=== PATIENT | female | born 1970 | race Caucasian/White ===

== ENCOUNTER 2016-11-18 10:12 | Inpatient (IN) | payer MEDICARE, MEDICAID ==
[~2016-11-18] VITALS: Ht 167.6 cm; Wt 62.5 kg
[2016-11-18] MEDS: TAMOXIFEN 10 MG TABLET PO SCH (09:00)
[2016-11-18] MEDS ORDERED: TAMO10TA PO (10:26)
[2016-11-18] MEDS ORDERED: PROP10TA PO (10:26)
[2016-11-18] MEDS ORDERED: GABA-827 PO (10:26)
[2016-11-18] MEDS ORDERED: OXYC20TA2 PO (10:26)
[2016-11-18] MEDS ORDERED: ONDANSETRON 2MG/ML, 2ML ONE (10:40)
[2016-11-18] MEDS ORDERED: HYDROmorphone 1 MG/ML, 1ML ONE ×2 (10:40→12:04)
[2016-11-18] MEDS: HYDROmorphone 1 MG/ML, 1ML IVPush PRN ×2 (10:43→12:06)
[2016-11-18 10:59] LABS: HEMATOCRIT 44.6 % (34.6-47.8); HEMOGLOBIN 15.1 g/dL (11.7-16.4); WHITE BLOOD COUNT 8.8 x10^3/uL (3.4-10)
[2016-11-18] MEDS ORDERED: SODIUM CHLORIDE 0.9% 1,000ML IVBOLUS ONE ×2 (11:00→14:00)
[2016-11-18] MEDS ORDERED: SODIUM CHLORIDE FLUSH 10ML SYR IVF ONE (11:00)
[2016-11-18] MEDS ORDERED: ONDANSETRON 2MG/ML, 2ML IVPush ONE (11:00)
[2016-11-18 11:10] LABS: ASPARTATE AMINO TRANSFERASE 73 U/L (15-37); BLOOD UREA NITROGEN 12 mg/dL (7-18)
[2016-11-18 11:56] LABS: PATH.CAST-FLAG NOT PRESENT; SPERM-FLAG NOT PRESENT; SRC-FLAG NOT PRESENT; XTAL-FLAG NOT PRESENT; YLC-FLAG NOT PRESENT
[2016-11-18] MEDS ORDERED: OMNIPAQUE 350 MG/ML, 100ML BOTTLE ONE (12:21)
[2016-11-18] MEDS ORDERED: PROMETHAZINE 25 MG/ML, 1ML IM ONE (13:30)
[2016-11-18] MEDS ORDERED: PROMETHAZINE 25 MG/ML, 1ML ONE (13:46)
[2016-11-18] MEDS ORDERED: CEFTRIAXONE PMX 1GM/50ML 50 ML IVPB ONE (14:00)
[2016-11-18] MEDS ORDERED: CEFTRIAXONE PMX 1GM/50ML 50 ML ONE (14:39)
[2016-11-18] MEDS ORDERED: BISACODYL 10 MG SUPP PR PRN (15:00)
[2016-11-18] MEDS ORDERED: ENALAPRILAT 1.25 MG/ML, 2ML IVPush PRN (15:00)
[2016-11-18] MEDS ORDERED: DOCUSATE 100 MG CAPSULE PO PRN (15:00)
[2016-11-18] MEDS ORDERED: POTASSIUM CHLORIDE 40 MEQ in SODIUM CHLORIDE 0.9% 500 ML IV ONE (15:30)
[2016-11-18] MEDS: GABAPENTIN 400 MG CAPSULE PO SCH ×2 (16:00→22:28)
[2016-11-18 16:05] VITALS: BP 121/83
[2016-11-18] MEDS: OXYcodone IR 30 MG TABLET PO PRN ×2 (16:12→21:58)
[2016-11-18] MEDS ORDERED: OXYcodone IR 5MG TABLET ONE ×2 (16:12→21:51)
[2016-11-18] MEDS: ONDANSETRON 2MG/ML, 2ML IVPush PRN ×2 (16:17→23:36)
[2016-11-18] MEDS: ACETAMINOPHEN 325 MG TABLET PO PRN (16:17)
[2016-11-18 19:20] VITALS: BP 131/88
[2016-11-18] MEDS: ENOXAPARIN 40 MG/0.4 ML SQ SCH (19:59)
[2016-11-18] MEDS: PROMETHAZINE 25 MG/ML, 1ML IM PRN (19:59)
[2016-11-18] MEDS: POTASSIUM CHLORIDE 10 MEQ in SODIUM CHLORIDE 0.9% 1,000 ML IV SCH (22:29)
[2016-11-19] MEDS: ACETAMINOPHEN 325 MG TABLET PO PRN ×3 (00:44→18:16)
[2016-11-19 00:51] VITALS: BP 139/90
[2016-11-19] MEDS: OXYcodone IR 30 MG TABLET PO PRN ×4 (03:52→21:56)
[2016-11-19 04:58] LABS: HEMOGLOBIN 11.8 g/dL (11.7-16.4); WHITE BLOOD COUNT 4.9 x10^3/uL (3.4-10)
[2016-11-19 05:13] LABS: BLOOD UREA NITROGEN 8 mg/dL (7-18)
[2016-11-19] MEDS: GABAPENTIN 400 MG CAPSULE PO SCH ×4 (05:54→19:42)
[2016-11-19 07:38] VITALS: BP 133/86
[2016-11-19] MEDS: PANTOPROZOLE 40MG TABLET PO SCH (07:50)
[2016-11-19] MEDS: PROPRANOLOL 10 MG TABLET PO SCH (07:50)
[2016-11-19] MEDS ORDERED: POTASSIUM CHLORIDE 20 MEQ TAB.ER.PRT PO ONE (08:00)
[2016-11-19] MEDS: ONDANSETRON 2MG/ML, 2ML IVPush PRN ×2 (08:04→18:16)
[2016-11-19] MEDS: TAMOXIFEN 10 MG TABLET PO SCH (09:00)
[2016-11-19] MEDS ORDERED: TAMOXIFEN 10 MG TABLET PO SCH (09:00)
[2016-11-19] MEDS: POTASSIUM CHLORIDE 20 MEQ TAB.ER.PRT PO SCH (11:22)
[2016-11-19] MEDS: POTASSIUM CHLORIDE 10 MEQ in SODIUM CHLORIDE 0.9% 1,000 ML IV SCH ×2 (11:28→20:45)
[2016-11-19] MEDS: PROMETHAZINE 25 MG/ML, 1ML IM PRN (11:45)
[2016-11-19 16:00] VITALS: BP 151/97
[2016-11-19 19:32] VITALS: BP 164/105
[2016-11-19 19:37] VITALS: BP 156/96
[2016-11-19] MEDS: ENOXAPARIN 40 MG/0.4 ML SQ SCH (19:42)
[2016-11-19] MEDS: ZOLPIDEM 5MG TABLET PO PRN (20:46)
[2016-11-20 00:45] VITALS: BP 170/102
[2016-11-20] MEDS: ONDANSETRON 2MG/ML, 2ML IVPush PRN ×3 (00:57→22:43)
[2016-11-20 01:37] VITALS: BP 143/82
[2016-11-20] MEDS: PROMETHAZINE 25 MG/ML, 1ML IM PRN (03:33)
[2016-11-20] MEDS: OXYcodone IR 30 MG TABLET PO PRN ×4 (03:58→22:43)
[2016-11-20] MEDS: GABAPENTIN 400 MG CAPSULE PO SCH ×4 (05:49→19:55)
[2016-11-20] MEDS: POTASSIUM CHLORIDE 10 MEQ in SODIUM CHLORIDE 0.9% 1,000 ML IV SCH (05:50)
[2016-11-20 07:23] VITALS: BP 151/96
[2016-11-20] MEDS: TAMOXIFEN 10 MG TABLET PO SCH (08:26)
[2016-11-20] MEDS: ACETAMINOPHEN 325 MG TABLET PO PRN ×3 (08:26→19:55)
[2016-11-20] MEDS: PROPRANOLOL 10 MG TABLET PO SCH (08:27)
[2016-11-20] MEDS: PANTOPROZOLE 40MG TABLET PO SCH (08:27)
[2016-11-20] MEDS: POTASSIUM CHLORIDE 20 MEQ TAB.ER.PRT PO SCH (08:27)
[2016-11-20 11:50] LABS: BLOOD UREA NITROGEN 5 mg/dL (7-18)
[2016-11-20 14:23] VITALS: BP 116/78
[2016-11-20] MEDS: ATENOLOL 50 MG TABLET PO SCH (16:14)
[2016-11-20 18:29] VITALS: BP 140/92
[2016-11-20] MEDS: ENOXAPARIN 40 MG/0.4 ML SQ SCH (19:56)
[2016-11-21] MEDS: ZOLPIDEM 5MG TABLET PO PRN (00:24)
[2016-11-21 02:49] VITALS: BP 110/71
[2016-11-21] MEDS: OXYcodone IR 30 MG TABLET PO PRN ×2 (04:50→10:59)
[2016-11-21] MEDS: GABAPENTIN 400 MG CAPSULE PO SCH ×2 (04:50→10:58)
[2016-11-21] MEDS: ATENOLOL 50 MG TABLET PO SCH (04:51)
[2016-11-21] MEDS: ACETAMINOPHEN 325 MG TABLET PO PRN (06:34)
[2016-11-21] MEDS: ONDANSETRON 2MG/ML, 2ML IVPush PRN ×2 (06:34→13:04)
[2016-11-21 07:00] VITALS: BP 130/75
[2016-11-21] MEDS: POTASSIUM CHLORIDE 20 MEQ TAB.ER.PRT PO SCH (08:31)
[2016-11-21] MEDS: TAMOXIFEN 10 MG TABLET PO SCH (08:31)
[2016-11-21 13:39] VITALS: BP 124/83
== END 2016-11-21 14:25 | disposition home or self-care (01) | DRG 871 ==
LOC: ED 13:44 → 3NE 13:45 → ED 14:10 → 3NW 11-19 12:49 → DCLOUNGE 11-21 13:56
PROVIDERS: ADMIT Internal Medicine; ATTEND Internal Medicine
DX: A41.9 Sepsis, unspecified organism (principal); N17.0 Acute kidney failure with tubular necrosis; R65.21 Severe sepsis with septic shock; K50.10 Crohn's disease of large intestine without complications; E87.2 Acidosis; K57.32 Diverticulitis of large intestine without perforation or abscess without bleeding; N39.0 Urinary tract infection, site not specified; A08.4 Viral intestinal infection, unspecified; Z92.3 Personal history of irradiation; K76.0 Fatty (change of) liver, not elsewhere classified; E86.0 Dehydration; F12.90 Cannabis use, unspecified, uncomplicated; I10 Essential (primary) hypertension; K44.9 Diaphragmatic hernia without obstruction or gangrene; Z79.810 Long term (current) use of selective estrogen receptor modulators (SERMs); Z80.3 Family history of malignant neoplasm of breast; Z85.3 Personal history of malignant neoplasm of breast; Z87.891 Personal history of nicotine dependence; Z90.12 Acquired absence of left breast and nipple; Z92.21 Personal history of antineoplastic chemotherapy; K57.90 Diverticulosis of intestine, part unspecified, without perforation or abscess without bleeding
CPT/HCPCS: 36415; 74020; 74177; 80048; 80053; 81001; 83605; 83690; 85025; 86141; 87040; 87086; 87147; 87324; 93005; 96361; 96372; 96374; 96375; 96376; J0696; J1170; J1650; J2405; J2550; J3480; Q9967; J7030; J7040

== ENCOUNTER 2017-10-20 21:12 | Emergency (ER) | payer MEDICARE, MEDICAID ==
[~2017-10-20] VITALS: Ht 167.6 cm; Wt 70.0 kg
[~2017-10-20 21:12] MED LIST: GABA-827 PO; OXYC20TA2 PO; PROP10TA PO; TAMO10TA PO
[2017-10-20 21:15] VITALS: BP 108/86
[2017-10-20 21:50] LABS: AMPHETAMINE SCREEN, URINE Positive (Negative); BARBITURATE SCREEN, URINE Negative (Negative); BENZODIAZEPINE SCREEN, URINE Positive (Negative); CANNABINOID SCREEN, URINE Negative (Negative); COCAINE SCREEN, URINE Negative (Negative); METHADONE SCREEN, URINE Negative (Negative); OPIATE SCREEN, URINE Negative (Negative)
== END 2017-10-20 21:43 | disposition home or self-care (01) ==
LOC: ED 21:36
DX: F17.200 Nicotine dependence, unspecified, uncomplicated (principal); F19.10 Other psychoactive substance abuse, uncomplicated; Z72.9 Problem related to lifestyle, unspecified; F41.1 Generalized anxiety disorder; Z85.3 Personal history of malignant neoplasm of breast
CPT/HCPCS: 80307; 99283